=== PATIENT | male | born 1950 | race Caucasian/White ===

== ENCOUNTER → 2021-10-24 | Outpatient (CLI) | payer OTHER ==
[~2021-10-24] VITALS: Ht 167.6 cm; Wt 90.7 kg
[~2021-10-24] MED LIST: ATENOLOL 100MG100 MG PO; CELEBREX 200 M200 MG PO; FLOMAX0.4 MG PO; HYDRALAZINE 5050 MG PO; PROSCAR 5MG TABL5 M1 PO; TORSEMIDE5 MG
[2021-10-24 13:08] VITALS: BP 170/110
[2021-10-24 13:10] LABS: HEMATOCRIT 45.6 % (42.0-52.0); MCH 28.7 pg (26.0-34.0); MCHC 32.9 g/dL (28.0-37.0); MCV 87.3 fL (80.0-100.0); RBC 5.22 mil/uL (4.50-6.00); RDW 15.5 % (10.5-14.5); WBC 7.8 thou/uL (4.0-11.0)
[2021-10-24 14:00] LABS: CALCIUM 8.7 mg/dL (8.5-10.1); CREATININE 1.3 mg/dL (0.7-1.3); POTASSIUM 3.9 mmol/L (3.5-5.1)
--- NOTE | 2021-10-24 17:54 | CATHLAB ---
[facility] [place] [address] [address] INVASIVE PROCEDURE REPORT Name: CURLY HUMPHREYS Room #: REG BASSEM Pelayo#: [id number] Admission: 10/24/21 Attend Phys: Nawaf Fairbanks MD, Discharge: Date of : 54 Report #: [id number] THIS REPORT FOR: cc: Reese Randolph MD, Russell Richard MD Mancuso, Gerald M. MD [facility] ~ APPROVED REPORT Study performed: 10/24/2021 14:52:21 Patient Details Patient Status: Out-Patient Room #: The patient is a 70 year-old male Event Personnel Nawaf Fairbanks Director Medical, Suzette Connell RN RN, Jose Manuel Blackmon RTR Scrub, Elizabeth Hall RTR Monitor Procedures Performed Art Access - R femoral artery* Alcides Access - R femoral vein Right and Left Heart Cath w/or w/o Coronarie [id number] [facility] Hemostasis w/ Mynx Hemostasis with Manual pressure 83027 Initial Mod Sed Same Phys/QHP Gr5y [id number] 02428 Mod Sed Same Phys/QHP Ea [id number] Procedure Narrative The Right Groin^ was infiltrated with 1% Lidocaine subcutaneous anesthesia. A PINNACLE 6FR Sheath #[id number] sheath was inserted into the RFA^. Coronary angiography was performed using coronary diagnostic catheters. The right coronary system was accessed and visualized with a JR4 catheter. The left coronary system was accessed and visualized with a JL4 catheter. The left ventricle was accessed and visualized with a PIGTAIL catheter. Left ventriculogram was performed in 30 degree projection. An aortogram of the abdominal aorta was performed. Closure device was deployed with a Fr MYNXGRIP 6/7F #[id number]. The patient tolerated the procedure well and there were no complications associated with the procedure. There was no hematoma. Intraoperative Conscious Sedation Sedation start time: 15:09 Case end Time: 15:48 Fentanyl 50 mcg Versed 2 mg Fluoro Time: 2.30 minutes [facility] [place] [address] [place] [address] INVASIVE PROCEDURE REPORT Name: PETRCURLY Room #: [facility]#: [id number] Admission: 10/24/21 Attend Phys: Nawaf Fairbanks, Discharge: Date of : 54 Report #: [id number] Dose: DAP 8138.20 cGycm2 890 mGy Contrast Type and Amount: Visipaque 40 ml Hemodynamics The right ventricular pressure is 51/15 mmHg. The pulmonary artery pressure is 47/27 mmHg with a mean of 35 mmHg. The mean pulmonary capillary wedge pressure is 24 mmHg. The aortic pressure is 207/111 mmHg with a mean of 134 mmHg. The left ventricular pressure is 174/18 mmHg with a mean of mmHg. The left ventricular end diastolic pressure is 32 mmHg. The cardiac output using thermo method is 5.10 L/min. The cardiac index using thermo method is 2.55 L/min/m2. Conclusion #1 Successful right heart catheterization with cardiac output by thermodilution. See above hemodynamics. #2 mild LV dysfunction mild global hypokinesis EF 45 to 50% range. #3 abdominal aortogram revealing a small infrarenal aortic aneurysm. Will evaluate noninvasively. It appears to be less than 4 cm. #4 large left main free of disease giving rise to LAD and circumflex. #5 LAD extends to the apex with mild irregularities there is a 50% eccentric proximal diagonal lesion no occlusive disease. #6 small nondominant circumflex no occlusive disease. #7 large dominant right coronary artery with no occlusive disease. Recommendations and plan: Continue aggressive risk factor modification. IV Lasix has been gives him. Patient has severe hypertension here treated with IV Lopressor IV hydralazine. I have initiated oral ARB and p.o. Lasix for discharge. PO2 erosive mild 10 mg daily atenolol 100 mg daily Edarbi which is a newer ARB 40 mg daily Relative fluid and sodium restriction. Follow-up with Dr. Randolph in [place] and will need pulmonary consult. Patient with moderate pulmonary hypertension with moderate pulmonary artery wedge pressure elevation <ELECTRONICALLY SIGNED> By: Nawaf Fairbanks MD, FACC 10/24/211753 53 [id number] Nawaf Fairbanks MD, FACC /INF
== END | disposition home or self-care (01) ==
LOC: CATH 11:28
PROVIDERS: ATTEND Internal Medicine Cardiovascular Disease
DX: R94.39 Abnormal result of other cardiovascular function study (principal); I25.10 Atherosclerotic heart disease of native coronary artery without angina pectoris; I71.4 Abdominal aortic aneurysm, without rupture; I11.0 Hypertensive heart disease with heart failure; I50.1 Left ventricular failure, unspecified; E78.5 Hyperlipidemia, unspecified; E78.00 Pure hypercholesterolemia, unspecified; F17.210 Nicotine dependence, cigarettes, uncomplicated; Z98.890 Other specified postprocedural states; Z79.899 Other long term (current) drug therapy; Z82.49 Family history of ischemic heart disease and other diseases of the circulatory system

== ENCOUNTER → 2021-10-24 | Outpatient (CLI) | payer OTHER | LOC: SJCVC 07:53 → SJCVCIMAG 07:53 | PROVIDERS: ATTEND Family Medicine | DX: I65.23 Occlusion and stenosis of bilateral carotid arteries (principal); I25.9 Chronic ischemic heart disease, unspecified; I10 Essential (primary) hypertension; I25.10 Atherosclerotic heart disease of native coronary artery without angina pectoris; R42 Dizziness and giddiness; R06.00 Dyspnea, unspecified; R94.39 Abnormal result of other cardiovascular function study; E78.00 Pure hypercholesterolemia, unspecified; E78.5 Hyperlipidemia, unspecified; F17.200 Nicotine dependence, unspecified, uncomplicated; Z86.73 Personal history of transient ischemic attack (TIA), and cerebral infarction without residual deficits; Z79.899 Other long term (current) drug therapy ==

== ENCOUNTER → 2021-12-04 | Outpatient (CLI) | payer OTHER | LOC: SJCVCIMAG 09:57 | PROVIDERS: ATTEND Internal Medicine Cardiovascular Disease | DX: I71.4 Abdominal aortic aneurysm, without rupture (principal); I25.10 Atherosclerotic heart disease of native coronary artery without angina pectoris; I10 Essential (primary) hypertension; E78.00 Pure hypercholesterolemia, unspecified; I27.20 Pulmonary hypertension, unspecified; E78.5 Hyperlipidemia, unspecified; F17.200 Nicotine dependence, unspecified, uncomplicated; Z86.73 Personal history of transient ischemic attack (TIA), and cerebral infarction without residual deficits; Z79.899 Other long term (current) drug therapy; Z88.8 Allergy status to other drugs, medicaments and biological substances ==